=== PATIENT | female | born 1990 | race Caucasian/White ===

== ENCOUNTER 2016-12-18 21:44 | Emergency (ER) | payer OTHER ==
[2016-12-18 21:51] VITALS: BP 124/77; PULSE 65; RESP 16; TEMP 97.9; O2SAT 99
[2016-12-18] MEDS ORDERED: IBUPROFEN 200 MG TAB PO ONE (21:57)
[2016-12-18] MEDS ORDERED: ACETAMINOPHEN 325 MG TAB PO ONE (21:57)
[2016-12-18] MEDS ORDERED: AZITHROMYCIN 250 MG TAB PO ONE (21:58)
--- NOTE | 2016-12-18 22:00 | UCPHY ---
H & P Time Seen by Provider: 12/18/16 21:49 Patient Type: New HPI/ROS: This patient complains of right ear pain reminiscent of prior otitis media which she has frequently. She has minimal nasal congestion over the past few days and while watching a movie on a date with her she developed gradual onset of right ear pain that is now 6/10 intensity in achy in nature. She has diminished hearing in that ear as well since the onset of the pain. She has not taken any medications and came directly to the clinic for evaluation due to suspicion of having otitis media. ROS: No fevers. No other constitutional symptoms. HEENT: She also reports a mild sore throat that started this evening as well. No odynophagia. No drainage from the ear. No left ear symptoms. Pulmonary: No cough. GI: No nausea vomiting call. Integumentary: No rash. 7 point ROS is otherwise negative. Past Medical/Surgical History: Frequent otitis media Smoking Status: Never smoked Physical Exam: Physical Exam Vital signs are normal. General: No acute distress HEENT: Nose: Clear discharge bilaterally. No sinus tenderness to percussion. Ears: L: External canal and tympanic membranes is clear with no erythema or abnormal findings. Right-sided: External canals clear right TM is bulging with a serous effusion with erythema to the TM Oropharynx: No erythema or exudates. No dysphonia. No drooling or stridor. Eyes: Pupils equal and react to light. Extraocular motions are intact. Neck: Supple with no meningismus. No cervical lymphadenopathy. Lungs: Clear to auscultation bilaterally with no rales, rhonchi or wheeze. No respiratory distress. Cardiac: Regular rate and rhythm with no murmur gallop or rub Skin: No rash or pallor. Neuro: Alert with no focal deficits noted. Constitutional: Initial Vital Signs Temperature (C) 36.6 C 12/18/16 21:49 Heart Rate 65 12/18/16 21:49 Respiratory Rate 16 12/18/16 21:49 Blood Pressure 124/77 H 12/18/16 21:49 O2 Sat (%) 99 12/18/16 21:49 O2 Delivery Mode Room Air Allergies/Adverse Reactions: codeine Allergy (Verified 12/18/16 21:49) Home Medications: Medication Instructions Recorded Azithromycin [Zithromax] 250 mg PO DAILY #4 tab 12/18/16 Fluticasone Nasal [Flonase Nasal 2 sprays NASAL DAILY #1 mdi 12/18/16 [facility] (RX)] Medical Decision Making ED Course/Re-evaluation: I counseled patient regarding otitis media She is given a dose of ibuprofen and Tylenol for pain and 1st dose of Zithromax antibiotic. She appears well other than the otitis media without clinical evidence to suggest [employer] infection or other complicating factors. - Data Points Medications Given: Discontinued Medications Acetaminophen (Tylenol) 975 mg PO EDNOW ONE Stop: 12/18/16 21:58 Last Admin: 12/18/16 22:02 Dose: 975 mg Departure - Departure Disposition: Home, Routine, Self-Care Clinical Impression: Otitis media Qualifiers: Otitis media type: serous Laterality: right Chronicity: acute Recurrence: not specified as recurrent Qualified Code(s): H65.01 - Acute serous otitis media, right ear Condition: Good Instructions: Otitis Media (ED) Additional Instructions: Diagnosis: Right otitis media Plan: Flonase steroid nasal spray Ibuprofen Tylenol for discomfort Ibuprofen while supple swelling the station 2. Zithromax antibiotic as prescribed Return for any significant worsening despite the treatment plan. Referrals: NONE *PRIMARY CARE P,. [Primary Care Provider] - As per Instructions Prescriptions: Azithromycin [Zithromax] 250 mg PO DAILY #4 tab Fluticasone Nasal [Flonase Nasal [facility] (RX)] 2 sprays NASAL DAILY #1 mdi - PQRS PQRS Measurement: NA
== END 2016-12-18 22:06 | disposition home or self-care (01) ==
LOC: CED 21:44
DX: H65.01 Acute serous otitis media, right ear (principal)
CPT/HCPCS: 99203-PO; G0463-PO